=== PATIENT | female | born 1965 | race Caucasian/White ===

== ENCOUNTER 2018-01-19 11:12 | Emergency (ER) | payer MEDICAID ==
[~2018-01-19] VITALS: Ht 152.4 cm; Wt 50.0 kg
[2018-01-19] MEDS ORDERED: KEPP500 PO (11:18)
[2018-01-19 13:00] LABS: BASOPHILS % 0.8 % (0.0-2.0); HEMATOCRIT. 39.3 % (36.0-48.0); HEMOGLOBIN. 13.5 g/dL (12.0-16.0); LYMPHOCYTES % 18.5 % (20.0-50.0); MEAN CORPUSCULAR HEMOGLOBIN 29.7 pg (28.0-32.0); MEAN CORPUSCULAR VOLUME 86.2 fL (81.0-99.0); MEAN PLATELET VOLUME 8.4 fl (7.4-10.4); MONOCYTES % 6.5 % (2.0-8.0); NEUTROPHILS % 74.2 % (40.0-76.0); PLATELET 250 x1000/uL (130-400); RED BLOOD CELL COUNT 4.56 mill/uL (4.2-5.4); RED CELL DISTRIBUTION WIDTH 13.4 % (11.6-14.6)
[2018-01-19 13:07] LABS: CHLORIDE 104 mEq/L (98-107)
[2018-01-19 13:15] LABS: HCG SCREEN NEGATIVE
[2018-01-19 13:17] LABS: PHENOBARBITAL < 2.1 ug/mL (15.0-40.0)
[2018-01-19 13:18] LABS: CARBAMAZEPINE 4.6 ug/mL (4-12)
[2018-01-19 14:09] VITALS: BP 129/73
== END 2018-01-19 14:12 | disposition home or self-care (01) ==
LOC: ER 11:16
DX: G40.909 Epilepsy, unspecified, not intractable, without status epilepticus (principal); Z98.890 Other specified postprocedural states; Z90.49 Acquired absence of other specified parts of digestive tract
CPT/HCPCS: 36415; 80053; 80156; 80165; 80184; 80185; 82962; 84703; 85025; 99284